=== PATIENT | male | born 1985 | race Caucasian/White ===

== ENCOUNTER 2021-03-12 21:08 | Emergency (ER) | payer OTHER, SELFPAY ==
[2021-03-12 21:31] VITALS: BP 117/77; PULSE 80; RESP 18; TEMP 36.9; O2SAT 100
[2021-03-12 23:12] VITALS: BP 136/72; PULSE 77; TEMP 36.6; O2SAT 97
--- NOTE | 2021-03-12 23:55 | ED.GENADULT ---
HPI - General Adult General Chief complaint: Urogenital-Male Stated complaint: severe left testicle pain x2 days Time Seen by Provider: 03/12/21 23:54 Limitations: no limitations History of Present Illness HPI narrative: 35-year-old gentleman with no significant medical history presents with increasing left-sided testicular pain. He 1st noticed some discomfort approximately 4 days ago 3 days ago was more uncomfortable worse when he would move from sitting to standing or when walking up stairs. Three days ago he saw an urgent care clinic physician who thought that it was probably epididymitis and sounds like he was given a shot of ceftriaxone. Two days ago he felt like he was perhaps improving and then today did not feel like he was continuing to improve and the instructions from the urgent care head suggested that he seek additional evaluation and ultrasound should his symptoms not continue to improve. He notices no fever, is not having pain with ejaculation or noticing color change to the ejaculate itself. He has no abdominal pain no inguinal pain or adenopathy and has not been constipated or having diarrhea. Has sex with women no new partners no penile discharge and no rashes, masses or skin abnormalities in the genital area. Related Data Previous Rx's Medication Instructions Recorded doxycycline monohydrate 100 mg 100 mg PO BID #20 cap 03/13/21 capsule naproxen 500 mg tablet 500 mg PO BID #20 tab 03/13/21 Allergies Allergy/AdvReac Type Severity Reaction Status Date / Time No Known Allergies Allergy Uncoded 09/27/17 13:05 Review of Systems Review of Systems Narrative: Remainder of complete review of systems is otherwise unremarkable except for that included in the HPI. Patient History Social History Smoking Status: Never smoker Smoking Status: Never smoker alcohol intake frequency: a few times a month Substance Use Type: does not use Exam Narrative Exam Narrative: General: Alert appropriate in no acute distress Respiratory: Able to speak in full sentences, no obvious respiratory distress Skin: No obvious rashes, warm and dry Neurologic: Grossly intact no obvious asymmetries or abnormalities Psych: appropriate insight and affect, cooperative Genitals: Normal external genitalia. No significant erythema to the scrotum. No discharge from the penis. Right testicle is nontender and unremarkable. Left testicle slightly tender over the epididymis. He has some superficial varicosities on the left side of his scrotum. There is no inguinal hernia appreciated on either side. Bedside ultrasound of the testicle/scrotum reveals good blood flow to both testes. Slightly edematous epididymis on the left. Initial Vital Signs Initial Vital Signs: Vital Signs Temperature 98.4 F 03/12/21 21:31 Pulse Rate 80 03/12/21 21:31 Respiratory Rate 18 03/12/21 21:31 Blood Pressure 117/77 03/12/21 21:31 Pulse Oximetry 100 03/12/21 21:31 Course Orders Ordered: ED Orders 03/12/21 21:30 Urinalysis and Microscopic Stat Vital Signs Vital signs: Vital Signs - 8 hr 03/12/21 21:31 03/12/21 23:12 Temperature 98.4 F 97.9 F Pulse Rate 80 77 Respiratory Rate 18 Blood Pressure 117/77 136/72 Pulse Oximetry 100 97 Medical Decision Making MDM Narrative Medical decision making narrative: Otherwise healthy 35-year-old gentleman with pain in the left testicle now for 4 days. Received a dose of presumed ceftriaxone 2 days ago slight improvement but has not continued to improve since them. Bedside ultrasound does not suggest an acute torsion with blood flow to both testes. With the area of tenderness in the slight swelling in the epididymis presented diagnosis of epididymitis seems most appropriate. There is no masses or abnormalities to suggested testicular tumor. No skin changes to the scrotum to suggest Maria Ines's gangrene. Recent recommendations for empiric antibiotic treatment for acute epididymitis have changed slightly and now include ceftriaxone 500 mg and doxycycline 100 mg b.i.d. for 10 days. Will add the doxycycline 100 mg as well as scheduled Naprosyn for the next week and suggest that he wear titer underwear that holds the scrotum closer to the body and return if things are not improving. Discharge Plan Departure Patient Disposition: Home Clinical Impression: Epididymitis Instructions: Epididymitis Activity Restrictions/Additional Instructions: Thank you for coming in today Bedside ultrasound done in the emergency department suggests that the diagnosis of epididymitis is correct. I do not see any evidence of testicular torsion (where the testicle is twisted on itself in the blood flow is impaired) or infection or tumors or masses. Very recently antibiotic guidelines were updated to suggest a shot of ceftriaxone(which he received an urgent care) AND oral doxycycline 100 mg twice a day for 10 days. I am also going to suggest the prescription version of Negar Woodson to help reduce some of the pain and swelling over the next couple of days. If your symptoms are worsening, please feel free to return to the ER. I hope you heal quickly Prescriptions: New doxycycline monohydrate 100 mg capsule 100 mg PO BID Qty: 20 RF: 0 naproxen 500 mg tablet 500 mg PO BID Qty: 20 RF: 0 Referrals: Candida Camilo PA-C [Primary Care Provider] -
== END 2021-03-13 00:15 | disposition home or self-care (01) ==
PROVIDERS: Emergency Provider Emergency Medicine; Family Provider Physician Assistant Medical; PCP Physician Assistant Medical
DX: N45.1 Epididymitis (principal)
CPT/HCPCS: 99281

== ENCOUNTER 2021-08-28 18:00 | Emergency (ER) | payer OTHER, SELFPAY ==
--- NOTE | 2021-08-28 18:30 | DI.RAD.S_ITS ---
PROCEDURE: XR FOOT RT MIN 3V INDICATIONS: logging injury TECHNIQUE: 3 views of the foot were acquired. COMPARISON: None. FINDINGS: Bones: No fractures or dislocations. No suspicious bony lesions. Soft tissues: No tibiotalar joint effusion. Achilles tendon appears normal. IMPRESSION: No acute right foot fracture or dislocation. Dictated by: Flynn Hickman M.D. on 08/28/2021 at 18:43 Approved by: Flynn Hickman M.D. on 08/28/2021 at 18:47
[2021-08-28 18:31] VITALS: BP 134/74; PULSE 88; RESP 16; TEMP 36.8; O2SAT 99; BMI 22.2
--- NOTE | 2021-08-28 19:01 | ED_ITS ---
HPI - Extremity Injury (Lower) <Dakota Rondon PA-C - Last Filed: 08/28/21 20:09> General Chief Complaint: Extremity Injury, Lower Stated Complaint: Right foot injury this morning Time Seen by Provider: 08/28/21 18:42 Source: patient Mode of arrival: Family Vehicle History of Present Illness HPI Narrative: Patient is a 35-year-old male presenting to the emergency department today for evaluation right foot pain. Patient states that at approximately 9:30 a.m. 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 He explains that he put his right foot out to attempt to stop the momentum of the log and began to experience a pain on lateral aspect of his right foot. He he states that the pain has gradually worsened throughout the day, stating that 800 mg of ibuprofen only improved his symptoms mildly. Of note, patient denies pain or injury elsewhere. No fever, chills, chest pain, cough, shortness of breath, nausea, vomiting, diarrhea, constipation, abdominal pain, dysuria, hematuria, numbness tingling lower extremities, or any other concerning symptoms reported. No further concerns were voiced at this time. Related Data Previous Rx's Medication Instructions Recorded doxycycline monohydrate 100 mg 100 mg PO BID #20 cap 03/13/21 capsule naproxen 500 mg tablet 500 mg PO BID #20 tab 03/13/21 Allergies Allergy/AdvReac Type Severity Reaction Status Date / Time No Known Allergies Allergy Uncoded 08/28/21 18:38 Review of Systems <Dakota Rondon PA-C - Last Filed: 08/28/21 20:09> Constitutional Constitutional: Denies chills, Denies fatigue, Denies fever(s), Denies frequent falls, Denies lethargy and Denies weakness Eyes Eyes: Denies loss of vision ENT Ears, Nose, Mouth, and Throat: Denies dizziness and Denies neck pain Cardiovascular Cardiovascular: Denies chest pain, Denies irregular heart rhythm, Denies lightheadedness, Denies palpitations, Denies dyspnea, Denies dyspnea on exertion and Denies orthopnea Respiratory Respiratory: Denies cough, Denies dyspnea, Denies dyspnea on exertion and Denies wheezing Gastrointestinal Gastrointestinal: Denies abdominal pain, Denies change in bowel habits, Denies diarrhea, Denies nausea and Denies vomiting Genitourinary Genitourinary: Denies hematuria, Denies flank pain, Denies urinary incontinence and Denies urinary urgency Musculoskeletal Musculoskeletal: Denies back pain, Reports arthralgias (Right foot pain), Denies muscle weakness, Denies neck pain, Denies numbness and Denies tingling Integumentary/Breasts Skin/Breast: Denies pruritus, Denies erythema, Denies rash and Denies wounds Neurologic Neurologic: Denies behavioral changes, Denies confusion, Denies dizziness, Denies frequent falls, Denies loss of vision, Denies numbness, Denies tingling and Denies weakness Psychiatric Psychiatric: Denies behavioral changes and Denies confusion Endocrine Endocrine: Denies fatigue and Denies palpitations Allergic/Immunologic Allergic/Immunologic: Denies wheezing Patient History <Dakota Rondon PA-C - Last Filed: 08/28/21 20:09> Social History Smoking Status: Current some day smoker Smoking Status: Current some day smoker tobacco type: cigarettes alcohol intake frequency: holidays/special occasions only Substance Use Type: does not use Exam <Dakota Rondon PA-C - Last Filed: 08/28/21 20:09> Narrative Exam Narrative: GENERAL: 35 year old patient appears stated age. Well-developed patient, in no acute distress. HEAD: Atraumatic. Normocephalic. EYES: Pupils equal round and reactive. Extraocular motions intact. No scleral icterus. No injection or drainage. ENT: Nose without bleeding, purulent drainage. Throat without erythema, tonsillar hypertrophy or exudate. Airway patent. NECK: Trachea midline. Non tender CARDIOVASCULAR: Regular rate and rhythm without murmurs, gallops, or rubs. RESPIRATORY: Clear to auscultation. Breath sounds equal bilaterally. No wheezes, rales, or rhonchi. GASTROINTESTINAL: Abdomen soft, non-tender, nondistended. EXTREMITIES: No edema. Mild tenderness to palpation appreciated along the dorsal aspect of the foot just distal to the deltoid ligament. No significant tenderness to palpation appreciated along the medial aspect of the right foot. No gross deformity appreciated. No significant overlying ecchymosis or erythema. Good sensation to light touch appreciated throughout the bilateral lower extremities. Gross motor function intact throughout the bilateral lower extremities. BACK: Nontender without deformity or crepitance. No flank tenderness. NEURO: AOx3. SKIN: No rash or erythema of visible areas Initial Vital Signs Initial Vital Signs: Vital Signs Temperature 98.2 F 08/28/21 18:31 Pulse Rate 88 08/28/21 18:31 Respiratory Rate 16 08/28/21 18:31 Blood Pressure 134/74 08/28/21 18:31 Pulse Oximetry 99 08/28/21 18:31 <Kristine Dangelo MD - Last Filed: 08/29/21 03:54> Initial Vital Signs Initial Vital Signs: Vital Signs Temperature 98.2 F 08/28/21 18:31 Pulse Rate 88 08/28/21 18:31 Respiratory Rate 16 08/28/21 18:31 Blood Pressure 134/74 08/28/21 18:31 Pulse Oximetry 99 08/28/21 18:31 Course <Dakota Rondon PA-C - Last Filed: 08/28/21 20:09> Course Course Narrative: X-ray of right foot obtained. Orders Ordered: ED Orders 08/28/21 18:30 XR foot RT min 3V Stat Vital Signs Vital signs: Vital Signs - 8 hr 08/28/21 18:31 Temperature 98.2 F Pulse Rate 88 Respiratory Rate 16 Blood Pressure 134/74 Pulse Oximetry 99 <Kristine Dangelo MD - Last Filed: 08/29/21 03:54> Orders Ordered: ED Orders 08/28/21 18:30 XR foot RT min 3V Stat Vital Signs Vital signs: Vital Signs - 8 hr 08/28/21 18:31 Temperature 98.2 F Pulse Rate 88 Respiratory Rate 16 Blood Pressure 134/74 Pulse Oximetry 99 MDM - Extremity Injury (Lower) <Dakota Rondon PA-C - Last Filed: 08/28/21 20:09> Imaging Data Extremity x-ray #1: Radiologist's Impression: PROCEDURE:? XR FOOT RT MIN 3V ? INDICATIONS:? logging injury ? TECHNIQUE:? 3 views of the foot were acquired.? ? COMPARISON:? None. ? FINDINGS:? ? Bones:? No fractures or dislocations.? No suspicious bony lesions.? ? Soft tissues:? No tibiotalar joint effusion.? Achilles tendon appears normal.? ? ? IMPRESSION:? No acute right foot fracture or dislocation. ? ? Dictated by: Flynn Hickman M.D. on 08/28/2021 at 18:43 ? ? Approved by: Flynn Hickman M.D. on 08/28/2021 at 18:47 ? MDM Narrative Medical decision making narrative: Differential diagnosis to consider but not limited to fracture versus dislocation versus sprain versus strain. Discussed results of x-ray imaging performed in the emergency department today informed patient that no acute bony abnormality was identified. I encouraged the patient to continue elevating the right lower extremity as needed to reduce swelling. Additionally, I encouraged the patient to apply ice to the painful area, apply compressive dressing with an Shamir bandage, and to take Tylenol and ibuprofen for pain. Patient expresses understanding and agrees to plan. He states at this time he is comfortable being discharged home in stable for discharge. Strict return precautions were discussed with the patient prior to discharge. Discharge Plan Departure Patient Disposition: Home Clinical Impression: Acute pain of right foot Instructions: DI for Foot Pain Activity Restrictions/Additional Instructions: *You have been diagnosed with acute right foot pain *What to do: *Please continue to take your regular medications as directed. [ ] New medication prescriptions sent to your pharmacy: [ ] [ ] New medication written as a paper prescription [X] No new medications given You were evaluated in the emergency department today for a right foot injury. X-ray imaging obtained in the emergency department today did not show signs of acute bony abnormality. I recommend that you keep the right lower extremity elevated at rest to help reduce swelling. Additionally, he can apply ice to the painful area as needed for pain management. A compressive dressing with an Shamir bandage may also help to reduce discomfort. Tylenol ibuprofen can be used together for pain management. I recommend following up with the primary care provider within the next 2-3 days for further evaluation. Please do not hesitate to return to the emergency department if you experience worsening pain, swelling of the right foot, numbness and tingling in the lower extremities, or any other concerning symptoms. *Please follow up with your primary care provider in 2-3 days, call for an appointment. Let them know you were seen in the Emergency Department and that we ask that you be seen in follow up. We will electronically transmit a record of today's note if your PCP is in our system *If you do not have a primary care provider please contact the [facility] Resource line at [phone]. They will ask some questions about your medical history and help get you set up with a doctor in the community. *Return to Emergency Department if you should have any new, worsening or concerning symptoms, such as fever greater than 101 F, shaking chills, worsening pain, persistent vomiting or other bothersome symptoms. Prescriptions: No Action doxycycline monohydrate 100 mg capsule 100 mg PO BID Qty: 20 0RF naproxen 500 mg tablet 500 mg PO BID Qty: 20 0RF Referrals: Candida Camilo PA-C [Primary Care Provider] - <Kristine Dangelo MD - Last Filed: 08/29/21 03:54> Cosign ED Attending Cosignature Attestation: I was immediately available in the department for consultation throughout this patient's visit. I agree with documentation as above. Kristine Dangelo MD
== END 2021-08-28 19:50 | disposition home or self-care (01) ==
PROVIDERS: Emergency Provider Physician Assistant; Family Provider Physician Assistant Medical; PCP Physician Assistant Medical
DX: M79.671 Pain in right foot (principal); W20.8XXA Other cause of strike by thrown, projected or falling object, initial encounter
CPT/HCPCS: 73630; 99283